=== PATIENT | female | born 1980 | race Caucasian/White ===

== ENCOUNTER → 2017-09-19 | Outpatient (CLI) | payer OTHER ==
[~2017-09-19] MED LIST: NS 100 ML IV 100 ML IV ONE
--- NOTE | 2017-09-21 12:53 | CT ---
HISTORY: Precordial chest pain and elevated D-dimer Cardiac CTA with calcium scoring Technique: Multiple axial images of the chest were obtained on a [address] from the aortic arch to the base of the heart with retrospective cardiac gating. Noncontrast evaluation of th e heart was performed for calcium scoring with prospective gating. After the administration of intra venous iodinated contrast retrospective gating of the heart was performed per vessel analysis. Cardi ac functional analysis was performed with segmentation of the cardiac cycle. 3D reconstructions and vessel analysis were performed on a vital imaging workstation. Findings: A total calcium score of 29 is observed. There is mild atherosclerotic plaque with mild or minimal n arrowings likely. The patient is between the 90 and 100 percentile for age and sex. There is a right dominant system. There is no flow limiting stenosis within the left main, LAD, left circumflex, or RCA with only mild atherosclerotic plaque identified. Functional analysis of the left ventricle: Ejection fraction 57 %. End-diastolic volume 163 mL End-systolic volume 69 mL. Stroke volume 94 mL Normal cardiac output of 5.6 L/min Extracardiac findings: No pathologically enlarged lymphadenopathy can be observed. The aortic arch is unremarkable in its a ppearance with normal vascular configuration. No significant pericardial effusion can be identified. The visualized portions of the lung parenchyma are unremarkable. No lytic or blastic lesions can b e identified within the visualized bony thorax. The visualized portions of the abdomen are unremarka ble. IMPRESSION: Mildly elevated coronary calcium score and decreased ejection fraction without high-grade luminal karlos rowing identified. Reported By:
== END ==
LOC: RAD 09:35
PROVIDERS: ATTEND Nuclear Medicine Nuclear Cardiology
DX: R07.2 Precordial pain (principal); R79.1 Abnormal coagulation profile
CPT/HCPCS: 75574; A4222